=== PATIENT | female | born 1965 | race African-American/Black ===

== ENCOUNTER 2018-01-27 18:06 | Inpatient (IN) | payer BC, OTHER ==
[~2018-01-27] VITALS: Ht 162.6 cm; Wt 107.8 kg
[~2018-01-27 18:06] MED LIST: CLON.2 PO; HYDR12.56 PO; IPRAAER IN; NORV10TA PO
[2018-01-27] MEDS ORDERED: IOHEXOL 350 MG/ML 10 ML VIAL (for RAD DIAG) IVCONTRAST ONE (18:07)
[2018-01-27 18:16] VITALS: BP 162/79; PULSE 99; RESP 18; TEMP 99.2; O2SAT 97
[2018-01-27] MEDS ORDERED: HYDR12.57 PO (18:28)
[2018-01-27] MEDS ORDERED: CLON0.2T PO (18:28)
[2018-01-27] MEDS ORDERED: AMLO10 PO (18:28)
[2018-01-27] MEDS ORDERED: MORPHINE SULFATE 4 MG/ML INJ IV PUSH ONE (18:30)
[2018-01-27 18:43] LABS: BASOPHIL % 0.5 % (0.0-2.0); EOSINOPHIL # 0.1 TH/MM3 (0-0.4); EOSINOPHIL % 0.8 % (0.0-4.0); HEMOGLOBIN 12.1 GM/DL (11.6-15.3); LYMPH % 26.6 % (9.0-44.0); LYMPHOCYTE # 2.4 TH/MM3 (1.0-4.8); MEAN CELL VOLUME 89.9 FL (80.0-100.0); MEAN CORPUSCULAR HEMOGLOBIN 30.3 PG (27.0-34.0); MEAN CORPUSCULAR HGB CONC 33.7 % (32.0-36.0); MEAN PLATELET VOLUME 8.1 FL (7.0-11.0); MONO % 5.6 % (0.0-8.0); MONOCYTE # 0.5 TH/MM3 (0-0.9); NEUT % 66.5 % (16.0-70.0); PLATELET COUNT 221 TH/MM3 (150-450); RED BLOOD COUNT 4.01 MIL/MM3 (4.00-5.30); RED CELL DISTRIBUTION WIDTH 13.6 % (11.6-17.2)
[2018-01-27 18:51] VITALS: O2SAT 98
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
[2018-01-27 19:10] LABS: ALBUMIN 3.7 GM/DL (3.4-5.0); AST (GOT) 167 U/L (15-37); BICARBONATE 25.9 MEQ/L (21.0-32.0); BLOOD UREA NITROGEN 7 MG/DL (7-18); CALCIUM 8.8 MG/DL (8.5-10.1); CREATININE 0.93 MG/DL (0.50-1.00); GLOMERULAR FILTRATION RATE 77 ML/MIN (>89); GLUCOSE,RANDOM 98 MG/DL (74-106)
[2018-01-27 19:12] LABS: ALT (GPT) 77 U/L (10-53)
[2018-01-27 19:14] LABS: ALKALINE PHOSPHATASE 60 U/L (45-117); TOTAL BILIRUBIN ADULT 0.3 MG/DL (0.2-1.0); TOTAL PROTEIN 7.9 GM/DL (6.4-8.2)
[2018-01-27 19:22] LABS: CHLORIDE 103 MEQ/L (98-107); SODIUM (NA) 140 MEQ/L (136-145)
[2018-01-27] MEDS ORDERED: DIATRIZOATE MEGLUM/DIATRIZOATE SOD 9 ML CUP ONE (19:23)
[2018-01-27] MEDS ORDERED: D5-NS + KCL 40 MEQ INJ 1,000 ML IV SCH (19:30)
[2018-01-27] MEDS ORDERED: POTASSIUM CHLORIDE 20 MEQ CONTROLLED RELEASE TAB PO ONE (19:30)
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
[2018-01-27] MEDS ORDERED: MORPHINE SULFATE 4 MG/ML INJ IV PUSH PRN (21:15)
[2018-01-27] MEDS ORDERED: MORPHINE SULFATE 4 MG/ML INJ IM ONE (21:15)
[2018-01-27 22:06] VITALS: BP 151/78; PULSE 82; RESP 16; O2SAT 98
[2018-01-27 22:15] VITALS: BP 145/93; PULSE 97; RESP 18; TEMP 99; O2SAT 98
[2018-01-27] MEDS ORDERED: SODIUM CHLOR 0.9% 1000 ML INJ 1,000 ML IV SCH (23:36)
[2018-01-27] MEDS ORDERED: oxyCODONE/ACETAMINOPHEN 5 MG/325 MG TAB PO PRN (23:45)
[2018-01-27] MEDS ORDERED: ONDANSETRON ODT 4 MG TAB PO PRN (23:45)
[2018-01-27] MEDS ORDERED: NALOXONE HCL 0.4 MG/ML AMP IV PUSH PRN (23:45)
[2018-01-27] MEDS ORDERED: SODIUM CHLORIDE 0.9% FLUSH 10 ML FLUSH IV FLUSH PRN (23:45)
[2018-01-27] MEDS ORDERED: Post-op Orders (for Pharmacy) XX ONE (23:45)
[2018-01-27] MEDS ORDERED: PANTOPRAZOLE SODIUM 40 MG VIAL IV PUSH SCH (23:45)
[2018-01-28] VITALS: BP 156/88; PULSE 98; RESP 18; TEMP 98.3; O2SAT 94
[2018-01-28] MEDS: MORPHINE SULFATE 4 MG/ML INJ IV PUSH PRN ×4 (01:31→16:28)
[2018-01-28] MEDS ORDERED: POVIDONE IODINE 5% (ANTISEPSIS KIT) 4 APPLICATIONS EACH NARE PRN (02:00)
[2018-01-28] MEDS ORDERED: CHLORHEXIDINE GLUCONATE 2 % 1 PACK (2 CLOTHS) TOPICAL PRN (02:00)
[2018-01-28] MEDS ORDERED: SODIUM CHLORID 0.9% 500 ML IV PRN (02:00)
[2018-01-28] MEDS ORDERED: LACTATED RINGER'S 1000 ML IV PRN (02:00)
[2018-01-28] MEDS ORDERED: METOPROLOL TARTRATE 25 MG TAB PO PRN (02:00)
[2018-01-28 04:00] VITALS: BP 144/83; PULSE 96; RESP 18; TEMP 98; O2SAT 96
[2018-01-28 06:01] LABS: AUTOMATED NEUTROPHIL # 6.2 TH/MM3 (1.8-7.7); BASOPHIL % 0.3 % (0.0-2.0); EOSINOPHIL # 0.1 TH/MM3 (0-0.4); EOSINOPHIL % 0.7 % (0.0-4.0); HEMATOCRIT 32.9 % (35.0-46.0); HEMOGLOBIN 11.2 GM/DL (11.6-15.3); LYMPH % 17.2 % (9.0-44.0); LYMPHOCYTE # 1.4 TH/MM3 (1.0-4.8); MEAN CELL VOLUME 89.9 FL (80.0-100.0); MEAN CORPUSCULAR HEMOGLOBIN 30.6 PG (27.0-34.0); MEAN PLATELET VOLUME 8.5 FL (7.0-11.0); MONO % 6.3 % (0.0-8.0); MONOCYTE # 0.5 TH/MM3 (0-0.9); NEUT % 75.5 % (16.0-70.0); PLATELET COUNT 201 TH/MM3 (150-450); RED BLOOD COUNT 3.67 MIL/MM3 (4.00-5.30); RED CELL DISTRIBUTION WIDTH 13.5 % (11.6-17.2); WHITE BLOOD COUNT 8.3 TH/MM3 (4.0-11.0)
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
[2018-01-28 06:38] LABS: BICARBONATE 26.1 MEQ/L (21.0-32.0); CALCIUM 8.2 MG/DL (8.5-10.1); CREATININE 0.88 MG/DL (0.50-1.00)
[2018-01-28] MEDS ORDERED: VANCOMYCIN HCL 1000 MG VIAL ONE (07:32)
[2018-01-28] MEDS ORDERED: SODIUM CHLOR 0.9% 250 ML INJ 250 ML ONE (07:32)
[2018-01-28] MEDS ORDERED: ceFAZolin INJ 1,000 MG VIAL ONE (07:32)
[2018-01-28] MEDS ORDERED: GENTAMICIN SULFATE 80 MG/2 ML VIAL ONE (07:32)
[2018-01-28] MEDS ORDERED: LACTULOSE SYRUP 20 GM/30 ML CUP PO PRN (07:45)
[2018-01-28 08:00] VITALS: BP 166/84; PULSE 95; RESP 16; TEMP 98.6; O2SAT 97
[2018-01-28] MEDS ORDERED: PERI PO (08:05)
[2018-01-28] MEDS ORDERED: MAGN30S PO (08:05)
[2018-01-28] MEDS: DOCUSATE SODIUM 50 MG/SENNA 8.6 MG TAB PO SCH ×2 (09:00→20:15)
[2018-01-28] MEDS: HYDROCHLOROTHIAZIDE 12.5 MG CAP PO SCH (09:00)
[2018-01-28] MEDS: SODIUM CHLORIDE 0.9% FLUSH 10 ML FLUSH IV FLUSH SCH ×2 (09:00→20:15)
[2018-01-28] MEDS: FAMOTIDINE 20 MG TAB PO SCH ×2 (09:00→20:15)
[2018-01-28] MEDS: cloNIDine HCL 0.2 MG TAB PO SCH (09:00)
[2018-01-28] MEDS: MAGNESIUM HYDROXIDE SUSP 30 ML CUP PO SCH ×2 (09:00→20:15)
[2018-01-28] MEDS ORDERED: ACETAMINOPHEN 1000 MG/100 ML 100 ML IV ONE (09:25)
[2018-01-28] MEDS ORDERED: FAMOTIDINE 20 MG/2 ML VIAL ONE (09:26)
[2018-01-28] MEDS ORDERED: MIDAZOLAM HCL 2 MG/2 ML VIAL ONE (09:26)
--- NOTE | 2018-01-28 12:14 | PD.OP ---
cc: Channing Hayes MD Operative Report Date of Surgery: Jan 28, 2018 Preoperative Diagnosis: Open right tibia fracture, right fibula fracture Postoperative Diagnosis: Procedure: Irrigation and debridement of open right tibia fracture, intramedullary nail fixation right tibia, open reduction to fixation right fibula, open reduction fixation right ankle syndesmosis Surgeon: Channing Hayes Highballer(s): Chidi Goldsmith PA-C The surgical procedure was assisted by my physician staff assistant. My P.A. presence was necessary throughout this case for the manipulation and positioning of the surgical extremity. My P.A. was assisting me throughout the duration of this procedure. The skill set of a physician staff assistant was medically necessary to complete this procedure. During the surgical case the surgical territory manager was working at the back table and the physician staff assistant was directly assisting me. Operation and Findings: Implants: ITS 9 mm x [345]mm tibial nail Plan of activity: Nonweightbearing Patient was seen and examined preoperatively. An informed consent was obtained from patient after detailed discussion of risk and benefits. Risks of surgery include bleeding, infection, painful hardware, nonunion, malunion, leg length discrepancy, need for hardware removal, and medical complications associated with anesthesia including blood clots, stroke, heart attack, and were discussed. Operative site was marked. Patient was brought to the operating room placed on or table. Patient received IV antibiotics and was given IV sedation GETA. Operative leg was prepped with alcohol Hibiclens and draped in usual sterile fashion. Timeout procedure was performed Procedure began with irrigation and debridement of open fracture. The ends of the tibia were exposed through the traumatic laceration. There was a small amount of visible contamination. The wound was thoroughly debrided with scalpel , curettes, and rondure. An excisional debridement was performed. After thorough debridement, the wound was irrigated with sterile saline. At this point the wound appeared to be very clean. Nexus return to the right fibula. Patient had a displaced fibular fracture with significant shortening. There is also clear disruption of the syndesmosis. A 4 inch incision was made over the posterior lateral calf centered over the fibular fracture. Subcu tissue assist with Bovie. Fracture site was visualized. Fracture is now reduced. Fracture keyed in excellent alignment. A plate was selected to span the fracture. Plate was present both K wires. 3.5 cortical screws were used to compress plate to bone. Multiple screws were placed above and below fracture. Once the fibula was stabilized in the tibia reduced and to improved alignment. Next attention was turned towards reduction of the tibia. A percutaneous clamp was placed. Traction was applied. Fracture was reduced. There was comminution of the fracture with multiple fragments. The fracture reduced and good alignment was achieved. Fracture clamp was used to aid in reduction. Next a 3 cm incision was made proximal to the patella. Quadriceps tendon was split in line with fibers. Cannulas were placed in the patellofemoral joint to protect the articular surface at all times. A guidepin was placed into the tibia and advanced in the tibial canal. Fluoroscopy was used to confirm appropriate guidepin placement. An opening reamer was used to open the tibial canal. A ball-tipped guidewire was advanced down the tibial canal. Guidepin was passed across the fracture site into the center of the distal tibia. Fluoroscopy confirmed guidepin placement. The nail length was now measured. The fracture was now held in a reduced position and the canal was reamed. The canal was reamed up to appropriate size. A tibia nail was now selected. Next the nail was fully seated. Using perfect [employer] technique 4 distal interlocking screws were placed. Using the insertion handle as a guide 2 proximal interlocking screws were placed. Next attention was turned towards the syndesmosis. The syndesmosis was manually reduced. 2 3.5 cortical screws were placed through the fibular plate into the tibia. The syndesmosis was stabilized. Final fluoroscopy confirmed appropriate alignment of fracture with well-placed hardware. Incisions and the knee joint were thoroughly irrigated with sterile saline. Fascia was closed with #1 PDS, subcutaneous tissues closed with 3-0 PDS and skin was closed with ruiz and 3-0 nylon. Sterile dressings were applied. Patient was awakened and transferred to recovery in stable condition. Channing Hayes MD Jan 28, 2018 12:14
[2018-01-28] MEDS ORDERED: ONDANSETRON HCL 4 MG/2 ML VIAL IVP PRN (12:15)
[2018-01-28] MEDS ORDERED: Post-op Orders (for Pharmacy) XX ONE (12:15)
[2018-01-28] MEDS ORDERED: HYDR-3366 PO (12:15)
[2018-01-28] MEDS ORDERED: diphenhydrAMINE HCL 25 MG CAP PO PRN (12:15)
[2018-01-28] MEDS ORDERED: ONDANSETRON ODT 4 MG TAB PO PRN (12:45)
[2018-01-28] MEDS ORDERED: DO NOT ADM ANY ANTICOAGULANT DRUGS PRN (12:45)
[2018-01-28] MEDS: LACTATED RINGER'S 1000 ML INJ 1,000 ML IV SCH ×2 (13:00→23:00)
[2018-01-28] MEDS: CALCIUM/VITAMIN D 250 MG/125 U TAB PO SCH ×2 (13:00→18:00)
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
--- NOTE | 2018-01-28 14:39 | RADRPT ---
EXAM DATE: 01/28/2018 1:35 PM EDT AGE/SEX: 52 years / Female INDICATIONS: Right tibial nail. CLINICAL DATA: This is the patient's subsequent encounter. Patient reports that signs and symptoms h ave been present for 2 days and indicates a pain score of Nonresponsive. MEDICAL/SURGICAL HISTORY: None. None. [place] [facility] [place]27/2018. . FINDINGS: 5 spot images obtained in the operating room during a procedure demonstrates placement of an antegrad e intramedullary laury within the tibia with proximal and distal interlocking screws. Additionally, a l ateral distal fibular sideplate is present with multiple interlocking screws and 2 syndesmotic screws . There is improved alignment of the fractures. The butterfly fragment associated with the distal tib ia fracture remains mildly displaced laterally. CONCLUSION: Improved alignment following tibia and fibula ORIF, as above. Electronically signed by: Red Mora MD 01/28/2018 2:06 PM EDT
[2018-01-28] MEDS: KETOROLAC TROMETHAMINE 30 MG/ML (IVP) VIAL IVP SCH ×2 (15:17→22:19)
--- NOTE | 2018-01-28 15:23 | EKG ---
Date Performed: 01/27/2018 Time Performed: 18:44:13 PTAGE: 52 years EKG: SINUS TACHYCARDIA NONSPECIFIC T-WAVE ABNORMALITY ABNORMAL RHYTHM ECG NO PREVIOUS TRACING DOCTOR: Sha Merritt Interpretating Date/Time 01/28/2018 15:22:07
[2018-01-28 16:00] VITALS: BP 127/71; PULSE 110; RESP 17; TEMP 98.7; O2SAT 92
--- NOTE | 2018-01-28 16:00 | OTSOAPIP ---
RECEIVED OCCUPATIONAL THERAPY ORDERS. PATIENT OFF FLOOR ALL MORNING AND EARLY AFTER NOON FOR SURGERY. UPON ATTEMPT IN LATE AFTERNOON, PATIENT FOUND TO BE SOUNDLY SLEEPING POST SURGERY. WILL DEFER EVALUATION THIS DATE AND REATTEMPT TOMORROW WHEN PATIENT IS ALERT. INTERDISCIPLINARY COMMUNICATION: REVIEWED ELECTRONIC MEDICAL RECORD Therapist: Kelly Fuchs OTR/L Signature on file
[2018-01-28] MEDS: ceFAZolin 2 GM PREMIX 50 ML IV SCH (17:40)
[2018-01-28] MEDS ORDERED: GENTAMICIN 80 MG PREMIX 100 ML IV SCH (18:00)
[2018-01-28 19:30] VITALS: BP 144/75; PULSE 92; RESP 18; TEMP 98.9; O2SAT 96
[2018-01-28] MEDS: ACETAMINOPHEN/HYDROcodone 325 MG/10 MG TAB PO PRN ×2 (19:39→23:41)
[2018-01-28] MEDS: GENTAMICIN INJ 80 MG in SODIUM CHLORIDE 0.9% INJ 100 ML IV SCH (20:14)
[2018-01-29] VITALS: BP 135/77; PULSE 91; RESP 18; TEMP 98.3; O2SAT 95
[2018-01-29] MEDS: ACETAMINOPHEN/HYDROcodone 325 MG/10 MG TAB PO PRN ×6 (02:15→23:15)
[2018-01-29] MEDS: ceFAZolin 2 GM PREMIX 50 ML IV SCH ×3 (02:15→17:16)
[2018-01-29 03:45] VITALS: BP 139/76; PULSE 95; RESP 18; TEMP 98.3; O2SAT 98
[2018-01-29 03:49] LABS: AUTOMATED NEUTROPHIL # 11.6 TH/MM3 (1.8-7.7); BASOPHIL % 0.3 % (0.0-2.0); HEMATOCRIT 30.5 % (35.0-46.0); HEMOGLOBIN 10.3 GM/DL (11.6-15.3); LYMPH % 6.1 % (9.0-44.0); LYMPHOCYTE # 0.8 TH/MM3 (1.0-4.8); MEAN CELL VOLUME 90.9 FL (80.0-100.0); MEAN CORPUSCULAR HEMOGLOBIN 30.6 PG (27.0-34.0); MEAN CORPUSCULAR HGB CONC 33.7 % (32.0-36.0); MEAN PLATELET VOLUME 8.3 FL (7.0-11.0); MONOCYTE # 0.5 TH/MM3 (0-0.9); NEUT % 89.6 % (16.0-70.0); PLATELET COUNT 190 TH/MM3 (150-450); RED BLOOD COUNT 3.36 MIL/MM3 (4.00-5.30); RED CELL DISTRIBUTION WIDTH 13.6 % (11.6-17.2); WHITE BLOOD COUNT 12.9 TH/MM3 (4.0-11.0)
[2018-01-29] MEDS: GENTAMICIN INJ 80 MG in SODIUM CHLORIDE 0.9% INJ 100 ML IV SCH ×3 (03:56→20:18)
[2018-01-29 04:17] LABS: BICARBONATE 27.2 MEQ/L (21.0-32.0); CREATININE 1.01 MG/DL (0.50-1.00)
--- NOTE | 2018-01-29 06:54 | PD.ORT.PN ---
Subjective Subjective Remarks POD 1 s/p I&D right open tibial fx with IMN right tibia and ORIF right fibula and syndesmosis doing well. pain controlled. no complaints. Objective Vitals Vital Signs Date Time Temp Pulse Resp B/P (MAP) Pulse Ox O2 Delivery O2 Flow Rate FiO2 01/29/18 03:45 98.3 95 18 139/76 (97) 98 01/29/18 00:00 98.3 91 18 135/77 (96) 95 01/28/18 19:30 98.9 92 18 144/75 (98) 96 01/28/18 16:00 98.7 110 17 127/71 (89) 92 01/28/18 13:20 98.0 82 20 151/83 (105) 94 Nasal Cannula 4 01/28/18 13:15 82 20 151/83 (105) 94 Nasal Cannula 4 01/28/18 13:00 91 20 161/97 (118) 99 Nasal Cannula 4 01/28/18 12:45 98.0 92 20 135/70 (91) 96 Nasal Cannula 4 01/28/18 08:00 98.6 95 16 166/84 (111) 97 I/O 01/28/18 01/28/18 01/28/18 01/29/18 01/29/18 01/29/18 07:00 15:00 23:00 07:00 15:00 23:00 Intake Total 500 ml 1700 ml 260 ml Output Total 1100 ml Balance 500 ml 600 ml 260 ml Intake Oral 100 ml 0 ml 260 ml IV Total 400 ml Other 1700 ml Output Urine Total 1000 ml Estimated Blood Loss 100 ml # Voids 2 1 # Bowel Movements 0 0 0 Result Diagram: 01/29/18 0323 01/29/18 0323 Imaging Last 24 hours Impressions Tibia/Fibula X-Ray 01/27/181831 Signed Impressions: CONCLUSION: There are displaced and angulated fractures the distal tibia and fibula, as abo ve. Head CT 01/27/181823 Signed Impressions: CONCLUSION: 1. Mildly depressed fracture of the right zygomatic arch. 2. No acute intracranial abnormality is identified. Chest X-Ray 01/27/181823 Signed Impressions: CONCLUSION: No acute cardiopulmonary abnormality is identified. Cervical Spine CT 01/27/181823 Signed Impressions: CONCLUSION: 1. No acute cervical spine abnormality is identified. 2. There is degenerative disc disease at C5-C6 and C6-C7. Abdomen/Pelvis CT 01/27/18 5694 Signed Impressions: CONCLUSION: 1. No acute abnormality is identified within the abdomen or pelvis. There is s ubcutaneous stranding on the anterior abdominal wall superior to the umbilicus. This could represent soft tissue contusion. 2. Uterus remains enlarged with a suspected fibroid in the posterior fundal as pect measuring 5.9 cm. There are bilateral ovarian cysts measuring up to 2.5 cm . 3. Nonacute findings include hepatic steatosis and mild atherosclerotic diseas e. Objective Remarks RLE: Dressings clean and dry. intact. +splint. NVI Assessment & Plan Assessment and Plan 1) s/p I&D right open tibial fx with IMN right tibia and ORIF right fibula and syndesmosis - POD 1 -NWB -elevate -maintain splint at all times -work with therapy on walker/wheelchair training -plan for home with [facility] tomorrow if doing well -f/u with Yamil or SIMONE in 2 weeks Chidi Goldsmith/Delicatessen Department Manager SIMONE Jan 29, 2018 06:54
[2018-01-29] MEDS ORDERED: XARE10TA PO (06:55)
--- NOTE | 2018-01-29 06:55 | HHI.FF ---
Face to Face Verification Diagnosis: (1) Open fracture of right tibia and fibula Physical Therapy Gait training Right LE Weight Bearing: Non WB Nursing Dressing Changes: Do not change dressing I have seen patient Mirella Harden on 01/29/18. My clinical findings support the need for the requested home health care services because: Ltd mobility - disease progression I certify that my clinical findings support that this patient is homebound because: Post-op weakness Chidi Goldsmith/Dry Cleaner Helper SIMONE Jan 29, 2018 06:55
[2018-01-29] MEDS ORDERED: WHEEMIS3 (06:58)
[2018-01-29] MEDS ORDERED: WALKER/ADULT/FO1 MIS (06:58)
[2018-01-29 08:00] VITALS: BP 131/81; PULSE 92; RESP 18; TEMP 98; O2SAT 96
[2018-01-29] MEDS: LACTATED RINGER'S 1000 ML INJ 1,000 ML IV SCH ×2 (09:00→19:00)
[2018-01-29] MEDS: SODIUM CHLORIDE 0.9% FLUSH 10 ML FLUSH IV FLUSH SCH ×2 (09:00→20:19)
[2018-01-29] MEDS: MAGNESIUM HYDROXIDE SUSP 30 ML CUP PO SCH ×2 (09:10→20:19)
[2018-01-29] MEDS: cloNIDine HCL 0.2 MG TAB PO SCH (09:10)
[2018-01-29] MEDS: HYDROCHLOROTHIAZIDE 12.5 MG CAP PO SCH (09:11)
[2018-01-29] MEDS: DOCUSATE SODIUM 50 MG/SENNA 8.6 MG TAB PO SCH ×2 (09:11→20:19)
[2018-01-29] MEDS: FAMOTIDINE 20 MG TAB PO SCH ×2 (09:11→20:19)
[2018-01-29] MEDS: CALCIUM/VITAMIN D 250 MG/125 U TAB PO SCH ×3 (09:11→17:15)
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
[2018-01-29 11:56] VITALS: BP 156/76; PULSE 83; RESP 18; TEMP 98.1; O2SAT 95
[2018-01-29] MEDS: ENOXAPARIN SODIUM 40 MG/0.4 ML SYRINGE SQ SCH (12:00)
[2018-01-29] MEDS: MORPHINE SULFATE 4 MG/ML INJ IV PUSH PRN (15:41)
[2018-01-29 16:00] VITALS: BP 138/74; PULSE 88; RESP 18; TEMP 98.6; O2SAT 93
[2018-01-29 19:30] VITALS: BP 119/64; PULSE 78; RESP 18; TEMP 97.9; O2SAT 93
[2018-01-30] VITALS: BP 137/90; PULSE 89; RESP 18; TEMP 98.1; O2SAT 95
[2018-01-30] MEDS: ceFAZolin 2 GM PREMIX 50 ML IV SCH ×2 (02:25→10:30)
[2018-01-30] MEDS: ACETAMINOPHEN/HYDROcodone 325 MG/10 MG TAB PO PRN ×4 (02:26→14:17)
[2018-01-30] MEDS: GENTAMICIN INJ 80 MG in SODIUM CHLORIDE 0.9% INJ 100 ML IV SCH ×2 (03:00→12:11)
[2018-01-30] MEDS: MORPHINE SULFATE 4 MG/ML INJ IV PUSH PRN ×2 (04:20→10:30)
[2018-01-30] MEDS: LACTATED RINGER'S 1000 ML INJ 1,000 ML IV SCH (05:00)
--- NOTE | 2018-01-30 06:35 | PD.ORT.PN ---
Subjective Subjective Remarks POD 2 s/p I&D right open tibial fx with IMN right tibia and ORIF right fibula and syndesmosis doing well. pain controlled. no complaints. ambulating with walker Objective Vitals Vital Signs Date Time Temp Pulse Resp B/P (MAP) Pulse Ox O2 Delivery O2 Flow Rate FiO2 01/30/18 00:00 98.1 89 18 137/90 (106) 95 01/29/18 19:30 97.9 78 18 119/64 (82) 93 01/29/18 18:31 18 01/29/18 16:00 98.6 88 18 138/74 (95) 93 01/29/18 15:52 18 01/29/18 11:56 98.1 83 18 156/76 (102) 95 01/29/18 08:00 98.0 92 18 131/81 (98) 96 I/O 01/29/18 01/29/18 01/29/18 01/30/18 01/30/18 01/30/18 07:00 15:00 23:00 07:00 15:00 23:00 Intake Total 260 ml 820 ml 570 ml Balance 260 ml 820 ml 570 ml Intake Oral 260 ml 720 ml 420 ml IV Total 100 ml 150 ml # Voids 1 3 1 # Bowel Movements 0 1 1 Result Diagram: 01/29/183 01/29/18 0323 Imaging Last 24 hours Impressions Tibia/Fibula X-Ray 01/27/181831 Signed Impressions: CONCLUSION: There are displaced and angulated fractures the distal tibia and fibula, as abo ve. Head CT 01/27/181823 Signed Impressions: CONCLUSION: 1. Mildly depressed fracture of the right zygomatic arch. 2. No acute intracranial abnormality is identified. Chest X-Ray 01/27/181823 Signed Impressions: CONCLUSION: No acute cardiopulmonary abnormality is identified. Cervical Spine CT 01/27/181823 Signed Impressions: CONCLUSION: 1. No acute cervical spine abnormality is identified. 2. There is degenerative disc disease at C5-C6 and C6-C7. Abdomen/Pelvis CT 01/27/181823 Signed Impressions: CONCLUSION: 1. No acute abnormality is identified within the abdomen or pelvis. There is s ubcutaneous stranding on the anterior abdominal wall superior to the umbilicus. This could represent soft tissue contusion. 2. Uterus remains enlarged with a suspected fibroid in the posterior fundal as pect measuring 5.9 cm. There are bilateral ovarian cysts measuring up to 2.5 cm . 3. Nonacute findings include hepatic steatosis and mild atherosclerotic diseas e. Objective Remarks RLE: Dressings clean and dry. intact. +splint. NVI Assessment & Plan Assessment and Plan 1) s/p I&D right open tibial fx with IMN right tibia and ORIF right fibula and syndesmosis - POD 2 -NWB -elevate -maintain splint at all times -work with therapy on walker/wheelchair training -plan for home with [facility] today if doing well with therapy -ortho cleared for DC to home if ambulating safely -f/u with Yamil or PA in 2 weeks Chidi Goldsmith/Farm Machinery Set Up Mechanic PA Jan 30, 2018 06:35
[2018-01-30] MEDS: CALCIUM/VITAMIN D 250 MG/125 U TAB PO SCH ×2 (07:17→12:11)
[2018-01-30] MEDS: FAMOTIDINE 20 MG TAB PO SCH (07:17)
[2018-01-30] MEDS: HYDROCHLOROTHIAZIDE 12.5 MG CAP PO SCH (07:18)
[2018-01-30] MEDS: cloNIDine HCL 0.2 MG TAB PO SCH (07:19)
[2018-01-30 08:00] VITALS: BP 123/80; PULSE 75; RESP 16; TEMP 98; O2SAT 94
[2018-01-30] MEDS: DOCUSATE SODIUM 50 MG/SENNA 8.6 MG TAB PO SCH (09:00)
[2018-01-30] MEDS: MAGNESIUM HYDROXIDE SUSP 30 ML CUP PO SCH (09:00)
[2018-01-30] MEDS: SODIUM CHLORIDE 0.9% FLUSH 10 ML FLUSH IV FLUSH SCH (09:00)
[2018-01-30] MEDS: ENOXAPARIN SODIUM 40 MG/0.4 ML SYRINGE SQ SCH (10:34)
[2018-01-30 11:00] VITALS: RESP 18
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
== END 2018-01-30 14:48 | disposition home health service (06) | DRG 494 ==
LOC: NEPE 18:06 → NEDA 21:08 → N06A 22:20
PROVIDERS: ADMIT Surgery; ATTEND Surgery
PROC: 0SSF0ZZ Reposition Right Ankle Joint, Open Approach (ICD-10-PCS; 2018-01-28)
PROC: 0QSJ06Z Reposition Right Fibula with Intramedullary Internal Fixation Device, Open Approach (ICD-10-PCS; 2018-01-28)
PROC: 0QSG06Z Reposition Right Tibia with Intramedullary Internal Fixation Device, Open Approach (ICD-10-PCS; principal; 2018-01-28 10:09)
DX: S82.431A Displaced oblique fracture of shaft of right fibula, initial encounter for closed fracture (principal); I10 Essential (primary) hypertension; S93.491A Sprain of other ligament of right ankle, initial encounter; S82.251B Displaced comminuted fracture of shaft of right tibia, initial encounter for open fracture type I or II; S39.81XA Other specified injuries of abdomen, initial encounter; N83.202 Unspecified ovarian cyst, left side; N83.201 Unspecified ovarian cyst, right side; V49.40XA Driver injured in collision with unspecified motor vehicles in traffic accident, initial encounter
CPT/HCPCS: 70450; 71045; 72125; 73590; 74177; 76000; 80048; 80053; 85025; 85610; 85730; 93005; 94150; 96374; C9113; J0131; J0690; J1580; J1650; J1885; J2250; J2270; J3010; J3370; J3480; J7030; J7050; L1830; Q9963; Q9967